=== PATIENT | male | born 1980 | race Caucasian/White ===

== ENCOUNTER 2019-10-19 16:19 | Emergency (ER) | payer OTHER ==
[~2019-10-19] VITALS: Ht 170.2 cm; Wt 90.3 kg
== END 2019-10-19 20:08 | disposition home or self-care (01) ==
LOC: ER 16:19
DX: R51 Headache (principal)

== ENCOUNTER 2020-06-10 00:06 | Emergency (ER) | payer OTHER ==
[~2020-06-10] VITALS: Ht 172.7 cm; Wt 93.0 kg
[2020-06-10] MEDS ORDERED: MEDROLPACK PO (02:59)
[2020-06-10] MEDS ORDERED: ORPHENADRINE C100 MG PO (02:59)
[2020-06-10] MEDS ORDERED: ACETAMINOPHEN500 M1 PO (02:59)
== END 2020-06-10 03:14 | disposition home or self-care (01) ==
LOC: ER 00:06
DX: R07.89 Other chest pain (principal); M94.0 Chondrocostal junction syndrome [Tietze]

== ENCOUNTER → 2024-05-02 | Emergency (ER) | payer OTHER ==
[~2024-05-02] VITALS: Ht 172.7 cm; Wt 75.3 kg
[~2024-05-02] MED LIST: ACETAMINOPHEN500 M1 PO; MEDROLPACK PO; ORPHENADRINE C100 MG PO
== END | disposition left against medical advice (07) ==
LOC: ER 02:33
DX: Z53.21 Procedure and treatment not carried out due to patient leaving prior to being seen by health care provider (principal)